=== PATIENT | male | born 1950 | race Hispanic/Latino ===

== ENCOUNTER 2018-11-25 11:58 | Emergency (ER) | payer MEDICARE ==
[~2018-11-25] VITALS: Ht 180.3 cm; Wt 95.3 kg
[2018-11-25] MEDS ORDERED: SODIUM CHLORIDE 0.9% 1000ML 1,000 ML IV STA ×2 (11:59)
[2018-11-25] MEDS ORDERED: PANTOPRAZOLE 40 MG 10ML VIAL IV STA (11:59)
[2018-11-25] MEDS ORDERED: THIAMINE HCL INJ 100 MG/ML 2ML VIAL IV ONE (12:00)
[2018-11-25] MEDS ORDERED: FOLIC ACID 5 MG/ML VIAL IV ONE (12:00)
[2018-11-25] MEDS ORDERED: DEXAMETHASONE SOD PHOS 10 MG/1 ML VIAL IM ONE (12:45)
[2018-11-25] MEDS ORDERED: TRAMADOL HCL 50 MG TAB PO ONE (12:45)
[2018-11-25] MEDS ORDERED: CYCLOBENZAPRINE HCL 10 MG TAB PO ONE (12:45)
[2018-11-25 13:43] VITALS: BP 124/78
--- NOTE | 2018-11-25 13:47 | Diagnostic Imaging Report ---
EXAMINATION: KNEE RIGHT THREE VIEWS INDICATION: Knee pain COMPARISON: None FINDINGS: No acute fracture or dislocation. Alignment is anatomic. Moderate patellofemoral compartment predominant degenerative changes with joint space narrowing and osteophyte formation. No substantial joint effusion. IMPRESSION: No acute osseous injury. Moderate degenerative changes as above. Signed by: Roselia Crowe MD on 11/25/2018 1:44 PM
--- NOTE | 2018-11-25 13:49 | Diagnostic Imaging Report ---
EXAMINATION: HIP RIGHT 2-3 VW (+/- PELVIS) INDICATION: Hip pain COMPARISON: None FINDINGS: AP and frog-leg radiographs of the right hip and AP radiograph of the pelvis were obtained. No acute fracture or dislocation. Alignment is anatomic. Mild degenerative changes of both hip joints with joint space narrowing and osteophyte formation. Nonobstructive bowel gas pattern. IMPRESSION: No acute osseous injury. Signed by: Roselia Crowe MD on 11/25/2018 1:45 PM
== END 2018-11-25 14:04 | disposition home or self-care (01) ==
LOC: ER 11:58
DX: M54.41 Lumbago with sciatica, right side (principal); I10 Essential (primary) hypertension; E11.9 Type 2 diabetes mellitus without complications; F41.9 Anxiety disorder, unspecified; E78.5 Hyperlipidemia, unspecified
CPT/HCPCS: 73502; 73562; 99283; J1100

== ENCOUNTER 2022-05-12 09:50 | Emergency (ER) | payer MEDICARE ==
[~2022-05-12] VITALS: Ht 180.3 cm; Wt 95.3 kg
== END 2022-05-12 13:34 | disposition home or self-care (01) ==
LOC: ER 10:34
DX: R50.9 Fever, unspecified (principal); U07.1 COVID-19; R05.9 Cough, unspecified; I10 Essential (primary) hypertension; E11.9 Type 2 diabetes mellitus without complications; E78.5 Hyperlipidemia, unspecified; F41.9 Anxiety disorder, unspecified
CPT/HCPCS: 71045; 99282; U0002